=== PATIENT | female | born 1950 | race Caucasian/White ===

== ENCOUNTER → 2017-08-17 | Outpatient (CLI) | payer OTHER | LOC: FIMAGING 15:05 | PROVIDERS: ATTEND Physician Assistant Medical | DX: Z12.31 Encounter for screening mammogram for malignant neoplasm of breast (principal) ==

== ENCOUNTER → 2018-10-16 | Outpatient (CLI) | payer OTHER | LOC: EMCIMAGING 13:44 | PROVIDERS: ATTEND Physician Assistant Medical | DX: Z12.31 Encounter for screening mammogram for malignant neoplasm of breast (principal) | CPT/HCPCS: 77067-PN ==

== ENCOUNTER → 2018-10-18 | Outpatient (CLI) | payer OTHER | LOC: EMCIMAGING 08:00 | PROVIDERS: ATTEND Physician Assistant | DX: Z13.820 Encounter for screening for osteoporosis (principal); M89.9 Disorder of bone, unspecified | CPT/HCPCS: 77080-PN ==